=== PATIENT | female | born 1980 | race Caucasian/White ===

== ENCOUNTER 2019-06-06 16:43 | Emergency (ER) | payer MEDICAID, OTHER ==
--- NOTE | 2019-06-06 16:59 | ERPHSYRPT ---
- History of Present Illness Time Seen by Provider: 06/06/19 16:58 Source: patient Exam Limitations: no limitations Physician History: For the past 3 days pt has had a non-productive cough, wheezing and fever up to 99.8 degrees; denies chest pain, shortness of air, nausea, vomiting. Allergies/Adverse Reactions: No Known Drug Allergies Allergy (Verified 06/06/19 17:06) Home Medications: No Home Meds 01/18/12 [History] Hx Tetanus, Diphtheria Vaccination/Date Given: Yes (UNKNOWN) Hx Influenza Vaccination/Date Given: No Hx Pneumococcal Vaccination/Date Given: No Travel Risk - International Travel Have you traveled outside of the country in past 3 weeks: No Have you or anyone close to you been diagnosed with or: No Do your reside in a community with a known COVID-19 case?: Yes If Yes where:: [facility] - Coronavirus Screening Has patient experienced Coronavirus symptoms: Yes Symptoms experienced: respiratory symptoms (i.e.[place],shortness of breath) Date of respiratory symptoms onset:: 06/04/19 (cough) - Review of Systems Constitutional: Fever Respiratory: Cough, Wheezing, No Dyspnea Cardiac: No Chest Pain Abdominal/Gastrointestinal: No Abdominal Pain, No Nausea, No Vomiting Skin: No Rash All Other Systems: Reviewed and Negative - Past Medical History Pertinent Past Medical History: No - Past Surgical History Past Surgical History: Yes Gastrointestinal: Cholecystectomy, Exploratory Laparoscopy Female Surgical History: Tubal Ligation Other Surgical History: LEAP PRODEDURE - Social History How long have you smoked: 10 Exposure to second hand smoke: Yes Drug Use: none Patient Lives Alone: No - Nursing Vital Signs Nursing Vital Signs: Initial Vital Signs Temperature 98.1 F 06/06/19 16:50 Pulse Rate 107 H 06/06/19 16:50 Respiratory Rate 20 06/06/19 16:50 Blood Pressure 118/86 06/06/19 16:50 O2 Sat by Pulse Oximetry 99 06/06/19 16:50 Pain Scale Pain Intensity 4 - Physical Exam General Appearance: alert Eye Exam: PERRL/EOMI Ears, Nose, Throat Exam: TMs normal, pharyngeal erythema (mild) Neck Exam: normal inspection Respiratory Exam: lungs clear Cardiovascular Exam: normal heart sounds Gastrointestinal/Abdomen Exam: soft, normal bowel sounds Back Exam: normal range of motion Extremity Exam: No pedal edema Neurologic Exam: alert, cooperative Skin Exam: warm, dry SpO2 Interpretation: normal SpO2: 99 O2 Delivery: Room Air - Course Nursing assessment & vital signs reviewed: Yes Ordered Tests: Medication Summary Discontinued Medications Generic Name Dose Route Start Last Admin Trade Name Gabriela PRN Reason Stop Dose Admin Azithromycin 500 mg 06/06/19 18:15 Zithromax 250 Mg Tablet PO 06/06/19 18:16 STAT ONE Lab/Rad Data: Laboratory Results 06/06/19 Range/Units Unknown Influenza Type A Ag NEGATIVE (NEGATIVE) Influenza Type B Ag NEGATIVE (NEGATIVE) RSV (PCR) NEGATIVE (Negative) Group A Strep Antibody NOT DETECTED (NEGATIVE) - Progress Progress: unchanged Counseled pt/family regarding: lab results - Departure Departure Disposition: Home Clinical Impression: Pharyngitis Condition: Stable Critical Care Time: No Referrals: ESE LARRY MD [Primary Care Provider] - Instructions: Cough, Adult (DC) Additional Instructions: Follow up with private doctor tomorrow. Self isolate for the next 14 days. Forms: Work/School Release Form Prescriptions: Azithromycin 250 mg [Zithromax 250 MG TABLET] 250 mg PO ZPACK #6 tablet
[2019-06-06 17:06] VITALS: BP 118/86; PULSE 107; O2SAT 99
[2019-06-06 17:54] LABS: INFLUENZA A NEGATIVE (NEGATIVE); INFLUENZA B NEGATIVE (NEGATIVE); RESPIRATORY SYNCTIAL VIRUS NEGATIVE (Negative)
[2019-06-06] MEDS ORDERED: Zithromax 250 MG TABLET PO ONE (18:15)
[2019-06-06] MEDS ORDERED: Zithromax 250 MG TABLET ONE (18:19)
== END 2019-06-06 18:58 | disposition home or self-care (01) ==
LOC: ED 16:43
DX: J02.9 Acute pharyngitis, unspecified (principal); R05 Cough; R06.2 Wheezing
CPT/HCPCS: 87631; 87651; 99283; A9270-GY